=== PATIENT | male | born 1955 | race Caucasian/White ===

== ENCOUNTER 2022-06-16 14:56 | Emergency (ER) | payer OTHER, MEDICARE ==
[~2022-06-16] VITALS: Ht 172.7 cm; Wt 90.7 kg
[2022-06-16] VITALS (10 sets, daily range): BP systolic 94–143; BP diastolic 66–115
[2022-06-16 16:17] LABS: BASO% 0.3 % (0-3); EOS% 0.9 % (0-8); HEMATOCRIT 44.1 % (39.0-50.0); HEMOGLOBIN 14.5 g/dl (14.0-18.0); IMMATURE GRANULOCYTES 0.1 % (0.0-5.0); MEAN CORPUSCULAR HGB 28.6 pG CALC (26.0-32.0); MEAN CORPUSCULAR HGB CONC 32.9 g/dL CAL (32.0-36.0); MONO% 7.7 % (2-13); NEUT# 4.5 thou/uL (1.82-7.42); RED BLOOD COUNT 5.07 mill/uL (4.70-6.10)
[2022-06-16 16:17] LABS: URINE BILIRUBIN - DIPSTICK NEGATIVE (NEGATIVE); URINE BLOOD DIPSTICK NEGATIVE (NEGATIVE); URINE COLOR YELLOW; URINE GLUCOSE - DIPSTICK NEGATIVE (NEGATIVE); URINE KETONE TRACE mg/dL (NEGATIVE); URINE LEUK ESTERASE NEGATIVE (NEGATIVE); URINE PH 5.5 (4.5-8.0); URINE PROTEIN - DIPSTICK NEGATIVE (NEG-TRACE); URINE SPECIFIC GRAVITY >=1.030; URINE UROBILINOGEN - DIPSTICK 0.2 E.U./dL (0.2)
[2022-06-16 16:18] LABS: URINE NITRITE - DIPSTICK NEGATIVE (Negative)
[2022-06-16 16:27] LABS: ALBUMIN 4.5 g/dL (3.2-5.0); ALKALINE PHOSPHATASE 63 u/l (38-126); ANION GAP 11 (6-22 (CALC)); BUN 10 mg/dL (8-23); BUN/CREATININE RATIO 13 (12-20 (CALC)); CARBON DIOXIDE 24 mmol/l (22-30); CHLORIDE 103 mmol/l (95-108); CREATININE 0.8 mg/dL (0.7-1.3); GFR FOR AFR.AMER. > 60 ML/MIN (>=60 (CALC)); GFR OTHER RACES > 60 ML/MIN (>=60 (CALC)); POTASSIUM 3.9 mmol/l (3.5-5.1); SGOT/AST 39 u/l (19-48); SODIUM 134 mmol/l (137-146); TOTAL PROTEIN 7.6 g/dL (6.3-8.2)
[2022-06-16] MEDS ORDERED: SINGULAIR10 MG PO (16:35)
[2022-06-16] MEDS ORDERED: OMEPRAZOLE20 MG PO (16:36)
[2022-06-16] MEDS ORDERED: LYRICA150 M1 PO (16:38)
[2022-06-16] MEDS ORDERED: TAMSULOSIN0.4 MG PO (16:40)
[2022-06-16] MEDS ORDERED: OXYBUTYNIN CHLO10 MG PO (16:41)
[2022-06-16] MEDS ORDERED: ORPHENADRINE100 MG PO (23:08)
[2022-06-16] MEDS ORDERED: TRAMADOL HCL50 MG PO (23:08)
== END 2022-06-16 23:55 | disposition home or self-care (01) | DRG 392 ==
LOC: ED 14:56
PROVIDERS: Emergency Medicine
DX: A08.4 Viral intestinal infection, unspecified (principal); S39.012A Strain of muscle, fascia and tendon of lower back, initial encounter; S29.012A Strain of muscle and tendon of back wall of thorax, initial encounter; X58.XXXA Exposure to other specified factors, initial encounter
CPT/HCPCS: Q9967

== ENCOUNTER 2023-01-09 11:52 | Observation (INO) | payer OTHER, MEDICARE ==
[2023-01-09] VITALS (14 sets, daily range): BP systolic 108–147; BP diastolic 56–90
[~2023-01-09] VITALS: Ht 172.7 cm; Wt 95.0 kg
[~2023-01-09 11:52] MED LIST: LYRICA150 M1 PO; OMEPRAZOLE20 MG PO; ORPHENADRINE100 MG PO; OXYBUTYNIN CHLO10 MG PO; SINGULAIR10 MG PO; TAMSULOSIN0.4 MG PO; TRAMADOL HCL50 MG PO
--- NOTE | 2023-01-09 12:06 | NUR ---
AMB TO TREATMENT ROOM WITH STEADY GAIT.
[2023-01-09 13:11] LABS: BASO% 0.3 % (0-3); EOS% 0.6 % (0-8); HEMATOCRIT 43.9 % (39.0-50.0); HEMOGLOBIN 14.6 g/dl (14.0-18.0); IMMATURE GRANULOCYTES 0.6 % (0.0-5.0); LYMPH% 24.2 % (15-41); MEAN CELL VOLUME 90.7 fL CALC (80.0-100.0); MEAN CORPUSCULAR HGB 30.2 pG CALC (26.0-32.0); MEAN CORPUSCULAR HGB CONC 33.3 g/dL CAL (32.0-36.0); MONO% 9.5 % (2-13); NEUT# 7.01 thou/uL (1.82-7.42); NEUT% 64.8 % (42-76); RED BLOOD COUNT 4.84 mill/uL (4.70-6.10); RED CELL DISTRI WIDTH 13.8 % (11.5-15.5)
--- NOTE | 2023-01-09 13:16 | NUR ---
PT STARTED ON HEPERIN. PT VERBALIZES NO NEEDS AT THIS TIME. VS STABLE.
[2023-01-09 13:22] LABS: ALBUMIN 3.8 g/dL (3.2-5.0); ALKALINE PHOSPHATASE 54 u/l (38-126); ANION GAP 10 (6-22 (CALC)); BUN 12 mg/dL (8-23); BUN/CREATININE RATIO 15 (12-20 (CALC)); CARBON DIOXIDE 25 mmol/l (22-30); CHLORIDE 107 mmol/l (95-108); CREATININE 0.8 mg/dL (0.7-1.3); GFR FOR AFR.AMER. > 60 ML/MIN (>=60 (CALC)); GFR OTHER RACES > 60 ML/MIN (>=60 (CALC)); SGOT/AST 42 u/l (19-48); SODIUM 137 mmol/l (137-146)
[2023-01-09 13:29] LABS: BILIRUBIN, TOTAL 0.5 mg/dL (0.2-1.3)
[2023-01-09 13:34] LABS: ACT PARTIAL THROMBO TIME 22.9 SECONDS (20.0-32.5); INTERNATIONAL NORMALIZED RATIO 1.1 RATIO (0.7-1.3); PROTHROMBIN TIME 10.8 SECONDS (9.0-12.5)
--- NOTE | 2023-01-09 14:43 | NUR ---
PATIENT PROVIDED A WARM BLANKET. PT IS SITTING AT THE EDGE OF THE BED WITH NO COMPLAINTS OF THIS TIME. VS STABLE.
--- NOTE | 2023-01-09 15:42 | NUR ---
PT IS ADVISED OF CONTINUED WAIT TIMES.
--- NOTE | 2023-01-09 16:24 | NUR ---
PT IS ALERT. FAMILY AT BEDSIDE.
--- NOTE | 2023-01-09 16:51 | NUR ---
PT REPORT PROVIDED TO CELINA GALVEZ. PATIENT GATHERED ALL BELONGINGS PRIOR TO DEPARTURE.
--- NOTE | 2023-01-09 20:15 | NUR ---
RECEIVED BEDSIDE REPORT FROM DAYSHIFT NURSE. PT IS MADE AWARE OF CHANGE OF SHIFT. FAMILY AT BEDSIDE. PT HAS NO COMPLAINTS OF PAIN AT THIS TIME. SAFETY PRECAUTIONS IN PLACE AND CALL LIGHT WITHIN REACH.
[2023-01-10 04:42] VITALS: BP 139/76
[2023-01-10 05:38] LABS: BASO% 0.3 % (0-3); EOS% 0.6 % (0-8); HEMATOCRIT 43.3 % (39.0-50.0); HEMOGLOBIN 14.4 g/dl (14.0-18.0); IMMATURE GRANULOCYTES 0.6 % (0.0-5.0); LYMPH% 29.1 % (15-41); MEAN CELL VOLUME 91.2 fL CALC (80.0-100.0); MEAN CORPUSCULAR HGB 30.3 pG CALC (26.0-32.0); MEAN CORPUSCULAR HGB CONC 33.3 g/dL CAL (32.0-36.0); MONO% 6.7 % (2-13); NEUT# 6.13 thou/uL (1.82-7.42); NEUT% 62.7 % (42-76); RED BLOOD COUNT 4.75 mill/uL (4.70-6.10); RED CELL DISTRI WIDTH 13.7 % (11.5-15.5)
[2023-01-10 05:53] LABS: ALBUMIN 3.5 g/dL (3.2-5.0); ALKALINE PHOSPHATASE 55 u/l (38-126); ANION GAP 8 (6-22 (CALC)); BUN 12 mg/dL (8-23); BUN/CREATININE RATIO 16 (12-20 (CALC)); CARBON DIOXIDE 27 mmol/l (22-30); CHLORIDE 105 mmol/l (95-108); CREATININE 0.7 mg/dL (0.7-1.3); GFR FOR AFR.AMER. > 60 ML/MIN (>=60 (CALC)); GFR OTHER RACES > 60 ML/MIN (>=60 (CALC)); MAGNESIUM 2.1 mg/dL (1.6-2.3); POTASSIUM 3.9 mmol/l (3.5-5.1); SGOT/AST 30 u/l (19-48); SODIUM 135 mmol/l (137-146); TOTAL PROTEIN 6.5 g/dL (6.3-8.2)
[2023-01-10 05:57] LABS: BILIRUBIN, TOTAL 0.8 mg/dL (0.2-1.3)
[2023-01-10 06:50] VITALS: BP 93/55
[2023-01-10 09:38] LABS: BASO% 0.3 % (0-3); EOS% 0.7 % (0-8); HEMATOCRIT 45.5 % (39.0-50.0); HEMOGLOBIN 15.3 g/dl (14.0-18.0); IMMATURE GRANULOCYTES 0.3 % (0.0-5.0); LYMPH% 26.6 % (15-41); MEAN CELL VOLUME 90.8 fL CALC (80.0-100.0); MEAN CORPUSCULAR HGB 30.5 pG CALC (26.0-32.0); MEAN CORPUSCULAR HGB CONC 33.6 g/dL CAL (32.0-36.0); MONO% 5.3 % (2-13); NEUT# 7.11 thou/uL (1.82-7.42); NEUT% 66.8 % (42-76); RED BLOOD COUNT 5.01 mill/uL (4.70-6.10); RED CELL DISTRI WIDTH 13.8 % (11.5-15.5)
[2023-01-10 10:44] LABS: ACT PARTIAL THROMBO TIME 45.4 SECONDS (20.0-32.5); INTERNATIONAL NORMALIZED RATIO 1.1 RATIO (0.7-1.3); PROTHROMBIN TIME 10.5 SECONDS (9.0-12.5)
[2023-01-10 10:59] VITALS: BP 123/69
[2023-01-10] MEDS ORDERED: ELIQUIS STARTER5 MG PO (11:38)
--- NOTE | 2023-01-10 13:09 | NUR ---
Discharge instructions given. Patient verbalizes understanding of same. Discharged in stable condition via Wheelchair to Home with spouse. All belongings sent with pt.
== END 2023-01-10 13:05 | disposition home or self-care (01) | DRG 301 ==
LOC: ED 11:52 → ED-I 13:30 → ED 14:22 → MS2 14:23 → UNDODEPER 17:32 → MS2 01-10 13:05
PROVIDERS: Family Medicine; Nurse Practitioner Family; ADMIT Student in an Organized Health Care Education/Training Program; ATTEND Student in an Organized Health Care Education/Training Program
DX: I82.461 Acute embolism and thrombosis of right calf muscular vein (principal); K21.9 Gastro-esophageal reflux disease without esophagitis; N40.0 Benign prostatic hyperplasia without lower urinary tract symptoms; Z86.718 Personal history of other venous thrombosis and embolism; Z91.040 Latex allergy status; Z91.048 Other nonmedicinal substance allergy status
CPT/HCPCS: J1644